=== PATIENT | female | born 1975 | race Caucasian/White ===

== ENCOUNTER 2018-04-06 16:40 | Outpatient (CLI) | payer OTHER ==
[~2018-04-06] VITALS: Ht 160 cm; Wt 74.5 kg
[2018-04-06] MEDS ORDERED: BETAMETHASONE 6 MG/ML, 5ML IM ONE (17:00)
[2018-04-06 17:03] VITALS: BP 104/68
== END 2018-04-06 17:40 | disposition home or self-care (01) ==
LOC: LDOP 16:40
PROVIDERS: ATTEND Obstetrics & Gynecology
DX: Z34.83 Encounter for supervision of other normal pregnancy, third trimester (principal); Z3A.29 29 weeks gestation of pregnancy
CPT/HCPCS: 59025; 96372; 99211; J0702; G0463